=== PATIENT | female | born 1930 | race Caucasian/White ===

== ENCOUNTER 2016-10-31 15:35 | Emergency (ER) | payer MEDICARE, MEDICAID ==
[~2016-10-31] VITALS: Wt 63.5 kg
[~2016-10-31 15:35] MED LIST: ASPIRIN325 MG PO; CARDIZEM CD120 MG PO; CELEXA20 MG PO; CIPROFLOXACIN500 MG PO; COUMADIN2.5 M1 PO; COUMADIN5 M2 PO; COZAAR50 MG PO; Coumadin2.5 MG PO; DILTIAZEM120 MG PO; FOSAMAX70 MG PO; HYDR25T PO; HYDROCHLORTHIAZIDE PO; HYDROCODONE BIT1 T11 PO; IBUPROFEN800 MG PO; KENALOG 0.1% C454 GM PO; LANTUS100 U/ML SC; LASIX40 MG PO; LOMOTIL 0.025 M1 TA1 PO; LOSARTAN POTASS50 M1 PO; Lovenox30 MG/0.3 SC; NORFLEX100 MG PO; OSCAL,OYSTER S500 MG PO; Oscal,Oyster S500 MG PO; PHENOBARBITAL32.4 M1 PO; POTASSIUM20 MEQ PO; PRAVACHOL40 MG PO; PRILOSEC20 M1 PO; PRILOSEC20 MG PO; PROCARDIA XL30 MG PO; SENNA PLUS PO; SYNTHROID0.025 MG PO; SYNTHROID0.05 MG PO; TRAMADOL HCL50 MG PO; ULTRAM50 MG PO; VICODIN 5/500 505 MG PO; ZANTAC 150150 MG PO; ZAROXOLYN2.5 MG PO; ZOFRAN ODT4 MG SL; ZYLOPRIM300 MG PO; [UNRECOGNIZED DRUG - OTHER] PO
[2016-10-31 15:49] VITALS: BP 154/78
[2016-10-31] MEDS ORDERED: COUMADIN0.5 MG PO (15:56)
[2016-10-31 16:30] LABS: PROTHROMBIN TIME 10.7 SECONDS (9.0-12.4)
== END 2016-10-31 17:24 | disposition home or self-care (01) ==
LOC: ED 15:35
PROVIDERS: Emergency Medicine
DX: S05.11XA Contusion of eyeball and orbital tissues, right eye, initial encounter (principal); I48.91 Unspecified atrial fibrillation; Z95.0 Presence of cardiac pacemaker; Z95.5 Presence of coronary angioplasty implant and graft; F32.9 Major depressive disorder, single episode, unspecified; Z79.01 Long term (current) use of anticoagulants; Z79.82 Long term (current) use of aspirin; Z79.4 Long term (current) use of insulin; Z88.2 Allergy status to sulfonamides; W22.8XXA Striking against or struck by other objects, initial encounter; Y93.89 Activity, other specified; Y92.022 Bathroom in mobile home as the place of occurrence of the external cause; Y99.9 Unspecified external cause status

== ENCOUNTER → 2016-11-01 | Outpatient (CLI) | payer MEDICARE, MEDICAID ==
[~2016-11-01] MED LIST changes: +COUMADIN0.5 MG PO
== END | disposition home or self-care (01) ==
LOC: CARD 00:09
DX: I48.91 Unspecified atrial fibrillation (principal); Z79.899 Other long term (current) drug therapy; Z95.0 Presence of cardiac pacemaker; I08.2 Rheumatic disorders of both aortic and tricuspid valves

== ENCOUNTER 2017-01-08 21:54 | Emergency (ER) | payer MEDICARE, MEDICAID ==
[~2017-01-08] VITALS: Ht 154.9 cm; Wt 70.3 kg
[2017-01-08 21:58] VITALS: BP 135/61
[2017-01-08] MEDS ORDERED: RIVASTIGMINE1 EAC1 T (22:05)
[2017-01-08] MEDS ORDERED: POTASSIUM CHLO20 ME4 PO (22:07)
[2017-01-08] MEDS ORDERED: GLUCAGON EMERGEN1 M1 IJ (22:08)
[2017-01-08] MEDS ORDERED: QUETIAPINE FUMA50 M1 PO (22:09)
[2017-01-08] MEDS ORDERED: CYPROHEPTADINE H4 M1 PO (22:10)
[2017-01-08] MEDS ORDERED: NAMZARIC 14 MG1 EACH PO (22:10)
[2017-01-08] MEDS ORDERED: DOK100 M1 PO (22:11)
[2017-01-08] MEDS ORDERED: VISTARIL50 MG PO (22:11)
[2017-01-08] MEDS ORDERED: POLYETHYLE17 GM/Dose PO (22:12)
[2017-01-08] MEDS ORDERED: LEVOTHYROXIN0.025 MG PO (22:13)
[2017-01-08] MEDS ORDERED: PRAVASTATIN SOD40 MG PO (22:13)
[2017-01-08] MEDS ORDERED: MIRTAZAPINE7.5 MG PO (22:14)
[2017-01-08] MEDS ORDERED: LANTUS100 U/ML SC (22:14)
[2017-01-08] MEDS ORDERED: MIRTAZAPINE15 M2 PO (22:15)
[2017-01-08] MEDS ORDERED: ARTHRITIS PAIN650 M3 PO (22:15)
[2017-01-08] MEDS ORDERED: LOSARTAN POTASS50 M1 PO (22:15)
[2017-01-08] MEDS ORDERED: OMEPRAZOLE20 M2 PO (22:16)
[2017-01-08] MEDS ORDERED: ALLOPURINOL300 MG PO (22:16)
[2017-01-08] MEDS ORDERED: PHENOBARBITAL32.4 M2 PO (22:17)
[2017-01-08] MEDS ORDERED: FUROSEMIDE40 MG PO (22:17)
[2017-01-08] MEDS ORDERED: ASPIRIN325 M2 PO (22:17)
[2017-01-08] MEDS ORDERED: VITAMIN D31000 IU PO (22:18)
[2017-01-08] MEDS ORDERED: CARTIA XT120 MG PO (22:19)
[2017-01-08] MEDS ORDERED: OYSTER SHELL 51 EACH PO (22:19)
[2017-01-08 22:21] LABS: BASO # 0.1 10*3/uL (0.0-0.1); BASO % 0.7 % (0.0-1.0); EOS # 0.1 10*3/uL (0.0-0.4); EOS % 1.3 % (1.0-4.0); HEMATOCRIT 31.2 % (37.0-47.0); HEMOGLOBIN 10.6 g/dl (12.0-16.0); LYMPH # 1.7 10*3/uL (1.3-4.4); LYMPH % 20.8 % (27.0-41.0); MEAN CELL VOLUME 89.7 fl (81.0-99.0); MEAN CORPUSCULAR HGB 30.5 pg (27.0-31.0); MEAN PLATELET VOLUME 11.8 fl (9.6-12.3); MONO # 0.8 10*3/uL (0.1-1.0); MONO % 9.2 % (3.0-9.0); NEUT # 5.7 10*3/uL (2.3-7.9); NEUT % 67.8 % (47.0-73.0); PLATELET COUNT AUTOMATED 259 10*3/uL (130-400); RED BLOOD COUNT 3.48 10*6/uL (4.10-5.10); RED CELL DISTRI WIDTH 14.8 % (0-14.5); WHITE BLOOD COUNT 8.4 10*3/uL (4.8-10.8)
[2017-01-08 22:26] LABS: BILIRUBIN NEGATIVE (NEGATIVE); BLOOD NEGATIVE (NEGATIVE); CLARITY CLEAR (CLEAR); COLOR YELLOW (YELLOW); GLUCOSE NEGATIVE (NEGATIVE); KETONE NEGATIVE (NEGATIVE); LEUKO ESTERASE TRACE (NEGATIVE); NITRITE NEGATIVE (NEGATIVE); PROTEIN NEGATIVE (NEGATIVE); SPECIFIC GRAVITY <= 1.005 (1.005-1.030); UROBILINOGEN 0.2 E.U./dl (0.2-1.0)
[2017-01-08 22:32] LABS: ALBUMIN 3.6 gm/dl (3.1-4.5); BILIRUBIN, TOTAL 0.3 mg/dl (0.2-1.0); POTASSIUM 4.5 mmol/L (3.5-5.1); TOTAL PROTEIN 7.5 gm/dL (6.4-8.2)
[2017-01-08 22:33] LABS: EPITHELIAL CELLS 15-20
[2017-01-08 22:33] LABS: FREE T4 1.11 ng/dl (0.76-1.46)
[2017-01-08 22:34] LABS: BACTERIA TRACE; URINE REFLEX COMMENT YES (NO)
[2017-01-08 22:39] LABS: THYROID STIM HORMONE (HS) 0.772 uIU/ml (0.358-4.75)
== END 2017-01-08 23:41 | disposition home health service (06) ==
LOC: ED 21:54
PROVIDERS: Emergency Medicine
DX: R41.82 Altered mental status, unspecified (principal); M19.90 Unspecified osteoarthritis, unspecified site; M25.561 Pain in right knee; M25.562 Pain in left knee; F32.9 Major depressive disorder, single episode, unspecified; Z88.2 Allergy status to sulfonamides; Z79.899 Other long term (current) drug therapy; Z79.82 Long term (current) use of aspirin

== ENCOUNTER 2017-01-08 23:06 | Inpatient (IN) | payer MEDICARE, MEDICAID ==
[~2017-01-08 23:06] MED LIST changes: +ALLOPURINOL300 MG PO; +ARTHRITIS PAIN650 M3 PO; +ASPIRIN325 M2 PO; +CARTIA XT120 MG PO; +CYPROHEPTADINE H4 M1 PO; +DOK100 M1 PO; +FUROSEMIDE40 MG PO; +GLUCAGON EMERGEN1 M1 IJ; +LEVOTHYROXIN0.025 MG PO; +MIRTAZAPINE15 M2 PO; +MIRTAZAPINE7.5 MG PO; +NAMZARIC 14 MG1 EACH PO; +OMEPRAZOLE20 M2 PO; +OYSTER SHELL 51 EACH PO; +PHENOBARBITAL32.4 M2 PO; +POLYETHYLE17 GM/Dose PO; +POTASSIUM CHLO20 ME4 PO; +PRAVASTATIN SOD40 MG PO; +QUETIAPINE FUMA50 M1 PO; +RIVASTIGMINE1 EAC1 T; +VISTARIL50 MG PO; +VITAMIN D31000 IU PO
[2017-01-09 01:14] VITALS: BP 130/70
[2017-01-09 07:04] LABS: HEMOGLOBIN A1c 6.4 % (4.8-5.6)
[2017-01-09 07:11] LABS: THYROID STIM HORMONE (HS) 0.616 uIU/ml (0.358-4.75)
[2017-01-09 07:49] VITALS: BP 139/79
[2017-01-09 08:43] LABS: VITAMIN D, 25-HYDROXY 37.8 ng/mL (30-100)
[2017-01-09 08:46] LABS: FOLIC ACID > 24.00 ng/mL (>5.38)
[2017-01-09 08:47] LABS: BASO # 0.1 10*3/uL (0.0-0.1); BASO % 0.9 % (0.0-1.0); EOS # 0.2 10*3/uL (0.0-0.4); EOS % 2.1 % (1.0-4.0); HEMATOCRIT 31.2 % (37.0-47.0); HEMOGLOBIN 10.6 g/dl (12.0-16.0); LYMPH # 1.7 10*3/uL (1.3-4.4); LYMPH % 21.1 % (27.0-41.0); MEAN CELL VOLUME 88.9 fl (81.0-99.0); MEAN CORPUSCULAR HGB 30.2 pg (27.0-31.0); MEAN PLATELET VOLUME 12.3 fl (9.6-12.3); MONO # 0.8 10*3/uL (0.1-1.0); MONO % 9.8 % (3.0-9.0); NEUT # 5.3 10*3/uL (2.3-7.9); NEUT % 65.7 % (47.0-73.0); PLATELET COUNT AUTOMATED 297 10*3/uL (130-400); RED BLOOD COUNT 3.51 10*6/uL (4.10-5.10); RED CELL DISTRI WIDTH 14.8 % (0-14.5); WHITE BLOOD COUNT 8.1 10*3/uL (4.8-10.8)
[2017-01-10 08:09] VITALS: BP 127/74
[2017-01-10 20:25] VITALS: BP 110/58
[2017-01-11 07:06] LABS: ALBUMIN 3.4 gm/dl (3.1-4.5); ALKALINE PHOSPHATASE 109 U/L (45-117); BILIRUBIN, TOTAL 0.6 mg/dl (0.2-1.0); BUN 26 mg/dl (7-24); CARBON DIOXIDE 23 mmol/L (21-32); CHLORIDE 106 mmol/L (98-107); EST GLOM FILT AFRICAN AMERICAN > 60 ml/min; POTASSIUM 3.9 mmol/L (3.5-5.1); SGOT/AST 30 IU/L (3-35); SGPT/ALT 29 U/L (12-78); SODIUM 139 mmol/L (136-145); TOTAL PROTEIN 7.2 gm/dL (6.4-8.2)
[2017-01-11 07:07] LABS: GLUCOSE 44 mg/dL (65-99)
[2017-01-11 10:46] VITALS: BP 109/56
[2017-01-11 13:15] VITALS: BP 123/59
[2017-01-11 20:02] VITALS: BP 122/72
[2017-01-12 08:08] VITALS: BP 115/52
[2017-01-12 20:00] VITALS: BP 130/90
[2017-01-13 08:05] VITALS: BP 114/39
[2017-01-13 20:00] VITALS: BP 104/50
[2017-01-14 08:21] VITALS: BP 124/52
[2017-01-14 20:00] VITALS: BP 138/62
[2017-01-15 07:47] VITALS: BP 130/63
[2017-01-15 21:03] VITALS: BP 135/62
[2017-01-16 08:55] VITALS: BP 129/62
[2017-01-16 20:01] VITALS: BP 107/62
[2017-01-17 08:00] VITALS: BP 108/62
[2017-01-17] MEDS ORDERED: PALIPERIDONE ER3 MG PO (09:26)
[2017-01-17] MEDS ORDERED: MIRTAZAPINE45 MG PO (09:26)
[2017-01-17] MEDS ORDERED: EXELON13.3 MG/21 T (09:26)
[2017-01-17] MEDS ORDERED: D-1000 185 MG-11 TAB PO (09:26)
[2017-01-17] MEDS ORDERED: MEMANTINE HCL10 MG PO (09:26)
[2017-01-17] MEDS ORDERED: ZYLOPRIM100 MG PO (15:04)
== END 2017-01-17 16:29 | disposition other institution (70) | DRG 884 ==
LOC: 3N 23:06
PROVIDERS: Internal Medicine; Nurse Practitioner Adult Health
DX: F01.51 Vascular dementia, unspecified severity, with behavioral disturbance (principal); E11.51 Type 2 diabetes mellitus with diabetic peripheral angiopathy without gangrene; F33.3 Major depressive disorder, recurrent, severe with psychotic symptoms; G30.9 Alzheimer's disease, unspecified; F02.81 Dementia in other diseases classified elsewhere, unspecified severity, with behavioral disturbance; F23 Brief psychotic disorder; I10 Essential (primary) hypertension; Z88.2 Allergy status to sulfonamides; Z79.82 Long term (current) use of aspirin; Z79.4 Long term (current) use of insulin; I48.91 Unspecified atrial fibrillation; Z79.01 Long term (current) use of anticoagulants

== ENCOUNTER 2017-01-19 20:40 | Inpatient (IN) | payer MEDICARE, MEDICAID ==
[~2017-01-19] VITALS: Ht 167.6 cm; Wt 69.6 kg
[2017-01-19] VITALS (8 sets, daily range): BP systolic 126–144; BP diastolic 68–89
--- NOTE | ~2017-01-19 | PR ---
[place], [place] PROGRESS NOTE NAME: DANICA NICOLAS [facility] #: [id number] UNIT #: [id number] ROOM: 412 DOCTOR: EDMOND GAGNON MD BIRTHDATE: [birth year] DOS: 01/22/2017 SUBJECTIVE: An 86-year-old female, covering for Dr. Perez. The patient is sleeping at this point. No new symptoms. She does not talk too much. Heart rate and blood pressure are much better. OBJECTIVE: VITAL SIGNS: Blood pressure is 102/49, heart rate is 100, sinus tachycardia. NECK: Supple. No JVD. LUNGS: Diminished breath sounds. CARDIOVASCULAR: Heart sounds are regular. ABDOMEN: Soft, nontender. NEUROLOGIC: Intermittent confusion. LABORATORY DATA: Hemoglobin 12.1, hematocrit 36.5. Electrolytes are normal. Creatinine is 1.1. Troponin the last one came down to 0.5. PLAN: The patient was seen by Dr. Perez and they have decided to treat the patient conservatively. I will consider getting an echocardiogram, if it is not done, to check ejection fraction. Continue the beta blockers and maximize it as tolerated. The patient is on metoprolol 25 b.i.d. Continue the aspirin and also simvastatin, losartan and supportive care. EDMOND GAGNON MD CM:PNTRANS [id number] EDMOND GAGNON MD 01/22/17 1306 interface
--- NOTE | ~2017-01-19 | PR ---
[place], [place] PROGRESS NOTE NAME: DANICA NICOLAS UNIT #: [id number] ROOM: 412 DOCTOR: HERO BAH MD BIRTHDATE: [birth year] DOS: 01/21/2017 SUBJECTIVE: The patient is mostly sleeping, just woke up to eat. Her condition has deteriorated. OBJECTIVE: VITAL SIGNS: Blood pressure 113/57, heart rate 87 beats per minute, breathing 14 times per minute, afebrile, temperature of 98 degrees Fahrenheit. GENERAL APPEARANCE: Generalized weakness . The patient is quite sleepy. HEENT AND NECK: Exam within normal limits. CARDIOVASCULAR SYSTEM: Heart rate is regular in rate and rhythm. S1 and S2 normally audible. LUNGS: Clear to auscultation. ABDOMEN: Soft, nontender. No obvious organomegaly. Bowel sounds are present. EXTREMITIES: Without significant cyanosis or edema. IMPRESSION: 1. The patient's condition has deteriorated and white cell count has increased to 35,000 from 12,000 at admission. There are no clear-cut signs of infection except for a possible urine infection. The patient only had 2-4 wbc's on her urinalysis at admission, but she was nitrites positive, so a urine culture was sent, which is starting to grow gram-negative bacilli. I will cover this with IV Zosyn and see if the patient's condition improves. This was discussed with patient's son who was present with her in the room. The patient's son only wants the patient to be kept comfortable. 2. Acute myocardial infarction with positive cardiac enzymes. Dr. 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 3. Chronic atrial fibrillation with tachycardia, improved with treatment. 4. Hypothyroidism. The patient on replacement and thyroid supplements. 5. 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 The patient maintains a DNR comfort care code status. The patient's prognosis remains guarded. [place], [place] PROGRESS NOTE NAME: DANICA NICOLAS UNIT #: [id number] ROOM: 412 DOCTOR: HERO BAH MD BIRTHDATE: [birth year] HERO BAH MD CM:GEETHA [id number] HERO BAH MD 01/22/17 0000 interface
--- NOTE | ~2017-01-19 | DS ---
[place], [place] DISCHARGE SUMMARY [id number] #: [id number] ROOM: 412 DOCTOR: HERO BAH MD BIRTHDATE: [birth year] DOS: 01/22/2017 DISCHARGE DIAGNOSES: 1. Urinary tract infection with Klebsiella pneumoniae sensitive to all antibiotics. 2. Altered mental status, delirium and mental confusion related to urinary tract infection, improved with treatment. 3. Acute myocardial infarction, treated conservatively as recommended by the patient's family and next of kin and durable power of patent attorney and seen by certified teacher assistant, Dr. Perez and Dr. Mckenzie. The patient is symptom free. 4. Hypothyroidism, replaced with thyroid supplements. 5. Adult failure to thrive with recurrent falls. The patient mostly remained in the bed, we took bedsore precautions including every 2 hour turning. 6. Severe leukocytosis from urinary tract infection. Blood counts to be repeated before discharging her today. The patient was also hydrated with normal saline and she started eating. She ate her breakfast and lunch today. The patient appears to have achieved maximum benefit from this admission and maintains a DNR comfort care code status. She is being [facility] to the [facility] today. DISCHARGE MANAGEMENT: Metoprolol 25 mg 3 times a day, diltiazem CD 120 mg a day, simvastatin 20 mg daily, mirtazapine 22.5 g at bedtime, DuoNeb q.i.d. p.r.n. for shortness of breath, rivastigmine 6 mg b.i.d., potassium chloride 20 mEq daily, Invega 3 mg daily, memantine 10 mg b.i.d., furosemide 40 mg a day, Colace 100 mg b.i.d., vitamin D 2000 units daily, Citracal with vitamin D 3 times a day, stomach coated aspirin 325 mg daily, allopurinol 100 mg daily, Tylenol 1000 mg t.i.d. p.r.n. for pain and fever, MiraLax 17 grams b.i.d., omeprazole p.r.n. for constipation, omeprazole 20 mg daily, levothyroxine 25 mcg daily, Augmentin 875 mg twice a day for a week. Consult physical therapy. Regular diet. [place], [place] DISCHARGE SUMMARY NAME: DANICA NICOLAS UNIT #: [id number] ROOM: [facility] DOCTOR: HERO BAH MD BIRTHDATE: [birth year] HERO BAH MD CM:BISI [id number] HERO BAH MD 01/22/17 1643 interface
--- NOTE | ~2017-01-19 | CON ---
[place], [place] REPORT OF CONSULTATION [id number] UNIT #: [id number] ROOM: 412 DOCTOR: YESSI YANG MD BIRTHDATE: [birth year] DOS: 01/20/2017 HISTORY OF PRESENT ILLNESS: This is an 86-year-old -[place] woman with a history of atrial fibrillation, flutter and had bradycardia. 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 She has a risk of fall, therefore is not on any anticoagulation. She has diabetes mellitus type 2, essential hypertension, depression and some dizziness at times. She apparently had taken a fall. She was off balanced. She did not feel lightheaded or dizzy, did not pass out and came to the Emergency Department. She lives in a detention. Apparently, no injuries were sustained. I was asked to see her because of her troponin level was somewhat elevated. She did not have any chest pain or palpitations. She does not have any breathing difficulty. She ambulates rather sluggishly, was using a walker. No orthopnea or swelling of the lower extremities. HOME MEDICATIONS: Numerous, diltiazem, ____, Cartia XT 120 daily, calcium, furosemide, phenobarbital, omeprazole, allopurinol, losartan, mirtazapine, levothyroxine, insulin, pravastatin, cyproheptadine, potassium, and aspirin. PHYSICAL EXAMINATION: GENERAL: The patient is very frail. Her speech is slow but clear. She looks a little pale. She is not diaphoretic. No thyromegaly or finger clubbing. VITAL SIGNS: The pulse is irregular at 100 beats per minute. Blood pressure 122/61. NECK: JVP is normal. There is no carotid bruit. HEART: There is no cardiomegaly. No murmurs are present. She had no edema of the lower extremities. LUNGS: She had quite a few crackles in the left lower zone and right lung appeared clear. DIAGNOSTIC STUDIES: An ECG demonstrated atrial fibrillation/flutter with a ventricular rate of 126 beats per minute with occasional ventricular pacing and incomplete left bundle-branch block pattern. Chest x-ray showed a small left pleural effusion. LABORATORY DATA: Troponin I level was 0.1, re to 0.7. IMPRESSION: 1. Elevated troponin I level. This may be due to patient's tachycardia caused by atrial fibrillation/flutter. There is a small possibility of a small non-Q-wave myocardial infarction. This patient is DNR and comfort care. With above in mind, I think one just need to slow down the heart rate. She is on Cardizem 120 daily, metoprolol 50 mg b.i.d. will be added. If the heart rate slows down too much, pacemaker will take over ____ the dose can be reduced. I thank you for this consult. [place], [place] REPORT OF CONSULTATION NAME: DANICA NICOLAS UNIT #: [id number] ROOM: 412 DOCTOR: CELIA SEXTON,YESSI BIRTHDATE: [birth year] YESSI YANG MD CM:CONSTR:REPORT OF CONSULTATION [id number] 01/21/17 2134 interface
[~2017-01-19 20:40] MED LIST changes: +D-1000 185 MG-11 TAB PO; +EXELON13.3 MG/21 T; +MEMANTINE HCL10 MG PO; +MIRTAZAPINE45 MG PO; +PALIPERIDONE ER3 MG PO; +ZYLOPRIM100 MG PO
[2017-01-19] MEDS ORDERED: NAMENDA10 MG PO (20:46)
[2017-01-19] MEDS ORDERED: RIVASTIGMINE TAR6 M1 PO (20:46)
[2017-01-19] MEDS ORDERED: LOSARTAN POTASS50 M1 PO (20:47)
[2017-01-19] MEDS ORDERED: FUROSEMIDE40 MG PO (20:47)
[2017-01-19] MEDS ORDERED: POTASSIUM CHLO10 ME5 PO (20:47)
[2017-01-19] MEDS ORDERED: ALLOPURINOL100 MG PO (20:48)
[2017-01-19] MEDS ORDERED: TYLENOL325 M2 PO (20:48)
[2017-01-19] MEDS ORDERED: VITAMIN D31000 IU PO (20:49)
[2017-01-19] MEDS ORDERED: PALIPERIDONE ER3 MG PO (20:50)
[2017-01-19] MEDS ORDERED: ASPIRIN325 MG PO (20:50)
[2017-01-19] MEDS ORDERED: OMEPRAZOLE MAGN20 MG PO (20:51)
[2017-01-19] MEDS ORDERED: MIRTAZAPINE45 MG PO (20:51)
[2017-01-19] MEDS ORDERED: OYSTER SHELL 51 EACH PO (20:51)
[2017-01-19] MEDS ORDERED: LEVOTHYROXIN0.025 M1 PO (20:52)
[2017-01-19] MEDS ORDERED: DOCUSATE SODIU100 M2 PO (20:52)
[2017-01-19] MEDS ORDERED: PRAVACHOL40 MG PO (20:52)
[2017-01-19] MEDS ORDERED: GLYCOLAX119 GM PO (20:53)
[2017-01-19 21:07] LABS: BASO # 0.1 10*3/uL (0.0-0.1); BASO % 0.6 % (0.0-1.0); EOS # 0.2 10*3/uL (0.0-0.4); EOS % 1.3 % (1.0-4.0); HEMATOCRIT 31.1 % (37.0-47.0); HEMOGLOBIN 10.4 g/dl (12.0-16.0); IG # 0.1 10*3/uL (0.0-0.1); LYMPH # 1.4 10*3/uL (1.3-4.4); LYMPH % 11.3 % (27.0-41.0); MEAN CELL VOLUME 89.9 fl (81.0-99.0); MEAN CORPUSCULAR HGB 30.1 pg (27.0-31.0); MEAN CORPUSCULAR HGB CONC 33.4 g/dl (33.0-37.0); MONO # 1.1 10*3/uL (0.1-1.0); MONO % 9.4 % (3.0-9.0); NEUT # 9.3 10*3/uL (2.3-7.9); NEUT % 76.7 % (47.0-73.0); PLATELET COUNT AUTOMATED 227 10*3/uL (130-400); RED BLOOD COUNT 3.46 10*6/uL (4.10-5.10); RED CELL DISTRI WIDTH 15.1 % (0-14.5); WHITE BLOOD COUNT 12.2 10*3/uL (4.8-10.8)
[2017-01-19 21:23] LABS: BUN 23 mg/dl (7-24); CARBON DIOXIDE 21 mmol/L (21-32); CHLORIDE 102 mmol/L (98-107); EST GLOM FILT AFRICAN AMERICAN > 60 ml/min; GLUCOSE 321 mg/dL (65-99); POTASSIUM 3.7 mmol/L (3.5-5.1); SODIUM 136 mmol/L (136-145)
[2017-01-19 21:29] LABS: TROPONIN I 0.104 ng/ml (<0.045)
[2017-01-20] VITALS (15 sets, daily range): BP systolic 84–142; BP diastolic 0–70
[2017-01-20] MEDS ORDERED: TYLENOL325 M1 PO (01:14)
[2017-01-20 16:01] LABS: BILIRUBIN NEGATIVE (NEGATIVE); BLOOD NEGATIVE (NEGATIVE); CLARITY SL CLOUDY (CLEAR); COLOR YELLOW (YELLOW); GLUCOSE 2+ (NEGATIVE); KETONE NEGATIVE (NEGATIVE); LEUKO ESTERASE NEGATIVE (NEGATIVE); NITRITE POSITIVE (NEGATIVE); PROTEIN TRACE (NEGATIVE); UROBILINOGEN 0.2 E.U./dl (0.2-1.0)
[2017-01-20 16:15] LABS: EPITHELIAL CELLS 0-2; URINE REFLEX COMMENT YES (NO)
[2017-01-21] VITALS: BP 130/66
[2017-01-21 05:57] LABS: HEMATOCRIT 36.5 % (37.0-47.0); HEMOGLOBIN 12.1 g/dl (12.0-16.0); MEAN CELL VOLUME 89.5 fl (81.0-99.0); MEAN CORPUSCULAR HGB 29.7 pg (27.0-31.0); MEAN CORPUSCULAR HGB CONC 33.2 g/dl (33.0-37.0); MEAN PLATELET VOLUME 13.5 fl (9.6-12.3); PLATELET COUNT AUTOMATED 237 10*3/uL (130-400); RED BLOOD COUNT 4.08 10*6/uL (4.10-5.10); RED CELL DISTRI WIDTH 14.8 % (0-14.5); WHITE BLOOD COUNT 35.3 10*3/uL (4.8-10.8)
[2017-01-21 06:24] LABS: ALBUMIN 2.7 gm/dl (3.1-4.5); BILIRUBIN, TOTAL 0.5 mg/dl (0.2-1.0); POTASSIUM 4.5 mmol/L (3.5-5.1); TOTAL PROTEIN 6.5 gm/dL (6.4-8.2)
[2017-01-21 07:24] LABS: LYMPHOCYTE # 0.4 10*3/uL (1.3-4.4); METAMYELOCYTES 1 % (0-0); MONOCYTE # 1.4 10*3/uL (0.1-1.0); NEUTROPHIL # 33.2 10*3/uL (2.3-7.9); NEUTROPHILS 94 % (47-73); OVALOCYTES FEW; PLATELET SUFFICIENCY NORMAL (NORMAL); SCHISTOCYTES FEW; TOTAL CELLS COUNTED 100 #CELLS
[2017-01-21 08:00] VITALS: BP 120/60
[2017-01-21 12:00] VITALS: BP 106/54
[2017-01-21 16:00] VITALS: BP 113/57
[2017-01-21 20:00] VITALS: BP 96/42
[2017-01-22] VITALS: BP 102/49
[2017-01-22 08:00] VITALS: BP 132/49
[2017-01-22 12:00] VITALS: BP 107/53
[2017-01-22] MEDS ORDERED: LOPRESSOR25 MG PO (14:51)
[2017-01-22] MEDS ORDERED: DILTIAZEM 24HR120 MG PO (14:51)
[2017-01-22] MEDS ORDERED: AUGMENTIN 875-875 MG PO (15:22)
[2017-01-22 16:00] VITALS: BP 114/57
[2017-01-22 16:44] LABS: BASO # 0.1 10*3/uL (0.0-0.1); BASO % 0.3 % (0.0-1.0); EOS # 0.1 10*3/uL (0.0-0.4); EOS % 0.5 % (1.0-4.0); HEMATOCRIT 31.4 % (37.0-47.0); HEMOGLOBIN 10.4 g/dl (12.0-16.0); IG # 0.1 10*3/uL (0.0-0.1); LYMPH # 1.4 10*3/uL (1.3-4.4); LYMPH % 8.2 % (27.0-41.0); MEAN CELL VOLUME 89.7 fl (81.0-99.0); MEAN CORPUSCULAR HGB 29.7 pg (27.0-31.0); MEAN CORPUSCULAR HGB CONC 33.1 g/dl (33.0-37.0); MEAN PLATELET VOLUME 13.4 fl (9.6-12.3); MONO # 1.1 10*3/uL (0.1-1.0); MONO % 6.5 % (3.0-9.0); NEUT # 13.9 10*3/uL (2.3-7.9); NEUT % 83.8 % (47.0-73.0); PLATELET COUNT AUTOMATED 185 10*3/uL (130-400); RED CELL DISTRI WIDTH 15.3 % (0-14.5); WHITE BLOOD COUNT 16.5 10*3/uL (4.8-10.8)
[2017-01-22 17:09] LABS: POTASSIUM 4.5 mmol/L (3.5-5.1)
== END 2017-01-22 18:27 | disposition other institution (70) | DRG 871 ==
LOC: ED 20:40 → 4E 23:03 → EDHOLD 23:03 → 4E 23:19
PROVIDERS: Emergency Medicine Emergency Medical Services; Internal Medicine
DX: A41.9 Sepsis, unspecified organism (principal); I21.3 ST elevation (STEMI) myocardial infarction of unspecified site; G93.41 Metabolic encephalopathy; E44.0 Moderate protein-calorie malnutrition; I48.92 Unspecified atrial flutter; F01.51 Vascular dementia, unspecified severity, with behavioral disturbance; N39.0 Urinary tract infection, site not specified; I48.2 Chronic atrial fibrillation; I10 Essential (primary) hypertension; B96.1 Klebsiella pneumoniae [K. pneumoniae] as the cause of diseases classified elsewhere; E11.9 Type 2 diabetes mellitus without complications; F32.9 Major depressive disorder, single episode, unspecified; R00.1 Bradycardia, unspecified; R62.7 Adult failure to thrive; Z66 Do not resuscitate; E03.9 Hypothyroidism, unspecified; Z51.5 Encounter for palliative care; W18.30XA Fall on same level, unspecified, initial encounter; Y93.89 Activity, other specified; Z68.23 Body mass index [BMI] 23.0-23.9, adult; Y92.89 Other specified places as the place of occurrence of the external cause; Y99.8 Other external cause status; Z88.2 Allergy status to sulfonamides; Z79.899 Other long term (current) drug therapy; Z79.82 Long term (current) use of aspirin; Z95.0 Presence of cardiac pacemaker; Z79.4 Long term (current) use of insulin

== ENCOUNTER 2017-01-25 14:43 | Emergency (ER) | payer MEDICARE, MEDICAID ==
[~2017-01-25] VITALS: Wt 68.0 kg
[~2017-01-25 14:43] MED LIST changes: +ALLOPURINOL100 MG PO; +AUGMENTIN 875-875 MG PO; +DILTIAZEM 24HR120 MG PO; +DOCUSATE SODIU100 M2 PO; +GLYCOLAX119 GM PO; +LEVOTHYROXIN0.025 M1 PO; +LOPRESSOR25 MG PO; +NAMENDA10 MG PO; +OMEPRAZOLE MAGN20 MG PO; +POTASSIUM CHLO10 ME5 PO; +RIVASTIGMINE TAR6 M1 PO; +TYLENOL325 M1 PO; +TYLENOL325 M2 PO
[2017-01-25 15:29] VITALS: BP 116/56
== END 2017-01-25 15:58 ==
LOC: ED 14:43
DX: R41.82 Altered mental status, unspecified (principal); I48.91 Unspecified atrial fibrillation; E11.9 Type 2 diabetes mellitus without complications; F32.9 Major depressive disorder, single episode, unspecified; Z90.89 Acquired absence of other organs; Z95.0 Presence of cardiac pacemaker; Z79.899 Other long term (current) drug therapy; Z79.82 Long term (current) use of aspirin; Z88.2 Allergy status to sulfonamides